=== PATIENT | female | born 1995 | race Caucasian/White ===

== ENCOUNTER 2024-02-13 20:21 | Emergency (ER) | payer OTHER ==
[~2024-02-13] VITALS: Ht 162.6 cm; Wt 68.0 kg
[2024-02-13 20:47] LABS: BASOPHILS % (AUTO) 0.3 % (0.0-2.0); EOSINOPHILS % (AUTO) 0.5 % (0.0-6.0); HEMATOCRIT 41 % (33-45); HEMOGLOBIN 13.4 g/dL (11.5-14.8); LYMPHOCYTES # (AUTO) 4.4 K/uL (0.8-4.8); LYMPHOCYTES % (AUTO) 49.2 % (20.0-44.0); MEAN CORPUSCULAR HEMOGLOBIN 28 PG (26.0-33.0); MEAN CORPUSCULAR HGB CONC 33 g/dl (31.0-36.0); MEAN CORPUSCULAR VOLUME 85 fL (82-100); MONOCYTES # (AUTO) 0.5 K/uL (0.1-1.30); MONOCYTES % (AUTO) 5.4 % (2.0-12.0); NEUTROPHILS # (AUTO) 3.9 K/uL (1.8-8.9); NEUTROPHILS % (AUTO) 44.6 % (43.0-81.0); PLATELET COUNT (AUTO) 322 K/uL (150-450); WHITE BLOOD COUNT (AUTO) 8.8 K/uL (4.3-11.0)
[2024-02-13 20:59] LABS: INR 1.01 (0.91-1.10); PROTHROMBIN TIME 10.7 SECS (9.2-11.1)
[2024-02-13 21:10] LABS: CALCIUM, SERUM 9.1 mg/dL (8.5-10.1); CREATININE 0.9 mg/dL (0.6-1.3); POTASSIUM 3.2 mmol/L (3.5-5.1)
[2024-02-13 21:15] LABS: PARTIAL THROMBOPLASTIN TIME 26.8 SEC (24.3-34.3)
[2024-02-13] MEDS ORDERED: LIDOCAINE 1%-EPI 1:100,000 20 ML VIAL ONE (21:16)
[2024-02-13 21:21] LABS: ALBUMIN 3.8 g/dL (3.4-5.0); BILIRUBIN,DIRECT 0.1 mg/dL (0.0-0.2); BILIRUBIN,TOTAL 0.3 mg/dL (0.2-1.0); TOTAL PROTEIN, SERUM 7.8 g/dL (6.4-8.2)
[2024-02-13] MEDS ORDERED: MORPHINE SULFATE INJ 4 MG/ML DISP.SYRIN ONE (21:29)
[2024-02-13] MEDS: MORPHINE SULFATE INJ 2 MG/ML DISP.SYRIN IV ONE (21:29)
[2024-02-13] MEDS ORDERED: CLIN300C12 PO (22:04)
[2024-02-13] MEDS ORDERED: TRAM-351 PO (22:04)
[2024-02-13] MEDS ORDERED: KETO10TA2 PO (22:04)
[2024-02-13] MEDS ORDERED: HYDR-4209 PO (22:14)
[2024-02-13 22:59] VITALS: BP 119/70; TEMP 98; O2SAT 98
== END 2024-02-13 23:00 | disposition home or self-care (01) ==
LOC: EDBD 20:26 → ER 20:26
DX: S81.012A Laceration without foreign body, left knee, initial encounter (principal); Z79.899 Other long term (current) drug therapy; W34.09XA Accidental discharge from other specified firearms, initial encounter; Y93.89 Activity, other specified; Y92.89 Other specified places as the place of occurrence of the external cause; Y99.8 Other external cause status
CPT/HCPCS: 12001; 36415; 71045; 73552; 73590; 74018; 80048; 80076; 85025; 85730; 96374; 99284; J2270; J3490